=== PATIENT | male | born 1975 | race Caucasian/White ===

== ENCOUNTER 2017-09-21 11:54 | Emergency (ER) | payer BC ==
[2017-09-21] MEDS ORDERED: Bacitracin/Neomycin/Polymyxin B Oint 0.9 GM U/D Packet TOP ONE (12:05)
--- NOTE | 2017-09-21 12:05 | EDM.PDOC ---
ED HPI GENERAL MEDICAL PROBLEM - General Chief Complaint: General Stated Complaint: finger crush injury Time Seen by Provider: 09/21/17 12:00 Source of Information: Reports: Patient, EMS, Family (), Old Records ([facility] chart/EMR) History Limitations: Reports: No Limitations - History of Present Illness INITIAL COMMENTS - FREE TEXT/NARRATIVE: Patient was brought to the emergency room via private automobile for evaluation of a contusion of digit #4 of his left hand, which he struck with a hammer while at work at about 11:15 a.m. He has not injured this digit in the past. He does not know when his last tetanus booster was given. He denies any foreign body, paresthesias, neurological deficits, or other complaints or injury. Patient is right-handed. He is self-employed and does not wish to claim this as a Workmen's Compensation injury. The patient denies any chest pain/pressure, heart flutter, dizziness, orthostasis, orthopnea, diaphoresis, paresthesias, recent decreased exercise tolerance, or any other anginal-type symptoms. No recent history of abdominal pain, heartburn, nausea, diarrhea, melena, gross hematochezia, or any food intolerance, including fatty foods, etc.. The patient also denies any recent fever, cough, wheezing, dyspnea, etc.. Onset: Today, Sudden Onset Date: 09/21/17 Onset Time: 11:15 Duration: Constant Location: Reports: Upper Extremity, Left. 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 Denies: Hard of Hearing, Impaired Vision Cardiovascular History: Reports: None. Denies: Aneurysm, Arrhythmia, Blood Clots/VTE/DVT, Heart Murmur, Hypertension Musculoskeletal History: Reports: Fracture, Other (See Below). Denies: Arthritis, Back Pain, Chronic, Gout, Neck Pain, Chronic, Osteoarthritis, RA, SLE Other Musculoskeletal History: X-ray of the right wrist in 1995 and the right thumb in about 2009 with surgeries as below - Past Surgical History Male Surgical History: Reports: Circumcision, Other (See Below). Denies: Vasectomy Other Male Surgeries/Procedures: Circumcision as an Musculoskeletal Surgical History: Reports: ORIF, Other (See Below) Other Musculoskeletal Surgeries/Procedures:: ORIF and tendon repair of right thumb fracture in about 2009, right wrist pain placement for wrist fracture in 1995 Social & Family History - Tobacco Use Smoking Status *Q: Current Some Day Smoker Tobacco Use Within Last Twelve Months: Snuff/Dip Years of Tobacco use: 10 Packs/Tins Daily: 0.3 (Maximum use of 2 cans per week with initial use at about age 31) Smoking Cessation Information Provided To Patient: Yes Second Hand Smoke Exposure: No Second Hand Smoke Education Provided: No - Living Situation & Occupation Living situation: Reports: (2001, 4 children) 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 ED EXAM, GENERAL - Physical Exam Exam: See Below Exam Limited By: No Limitations General Appearance: Alert, WD/WN, No Apparent Distress Head: Atraumatic, Normocephalic Neck: Normal Inspection, Supple, Non-Tender, Full Range of Motion. No: Lymphadenopathy (L), Lymphadenopathy (R), Thyromegaly Respiratory/Chest: No Respiratory Distress, Lungs Clear, Normal Breath Sounds, No Accessory Muscle Use, Chest Non-Tender. No: Pleural Rub, Retractions Cardiovascular: Normal Peripheral Pulses, Regular Rate, Rhythm, No Edema, No Gallop, No JVD, No Murmur, No Rub. No: Gallop/S3, Gallop/S4, Friction Rub Peripheral Pulses: 2+: Radial (L), Radial (R), Dorsalis Pedis (L), Dorsalis Pedis (R) GI/Abdominal: Normal Bowel Sounds, Soft, Non-Tender, No Organomegaly, No Distention, No Abnormal Bruit, No Mass, Pelvis Stable (Male) Exam: Deferred Rectal (Males) Exam: Deferred Back Exam: Normal Inspection, Full Range of Motion. No: CVA Tenderness (L), CVA Tenderness (R), Muscle Spasm Extremities: Normal Range of Motion, No Pedal Edema, Normal Capillary Refill, Other (2 cm in length irregular laceration over the extensor surface of digit # 4 of the left hand including nailbed involvement; no foreign body; mild crepitation but no significant deformity with bone not visible; moderate subungual hematoma, additional 1 cm in length laceration over the proximal flexor aspect of the middle phalanx of the same digit). No: Holly's Sign Neurological: Alert, Oriented, CN II-XII Intact, Normal Cognition, Normal Gait, Normal Reflexes, No Motor/Sensory Deficits Psychiatric: Normal Affect, Normal Mood Skin Exam: Warm, Normal Color, No Rash, Wound/Incision (As above). No: Diaphoretic, Ecchymosis Lymphatic: No Adenopathy ED GENERAL MEDICAL PROCEDURES - Laceration/Wound Repair Left Distal Dorsal Finger Lac/wound length in cm: 2.0 Appearance: Superficial, Irregular, Clean Distal NVT: Neuro & Vascular Intact, No Tendon Injury Anesthetic Type: Digital Local Anesthesia - Lidocaine (Xylocaine): 1% Plain Local Anesthetic Volume: Other (10 cc with digital block with additional 3 mL of local at the nailbed) Skin Prep: Providone-Iodine (Betadine) Saline irrigation (cc's): 0 Exploration/Debridement/Repair: Wound Explored, In a Bloodless Field, Explored to Base, No Foreign Material Found, Multiple Flaps Aligned Closed with: Sutures Suture Size: 4-0 # of Sutures: 6 Suture Type: Nylon, Interrupted, Simple Drain Placement: No Sterile Dressing Applied: Nurse Tetanus Status Addressed: Yes Complications: No Left Middle Ventral Finger Lac/wound length in cm: 1.0 Appearance: Superficial, Linear Distal NVT: Neuro & Vascular Intact, No Tendon Injury Anesthetic Type: Local Local Anesthesia - Lidocaine (Xylocaine): 1% Plain Local Anesthetic Volume: 4cc Skin Prep: Providone-Iodine (Betadine) Saline irrigation (cc's): 0 Exploration/Debridement/Repair: Wound Explored, In a Bloodless Field, Explored to Base, No Foreign Material Found Closed with: Sutures Suture Size: 4-0 # of Sutures: 4 Suture Type: Nylon, Interrupted, Simple Drain Placement: No Sterile Dressing Applied: Nurse Tetanus Status Addressed: Yes Complications: No Course - Vital Signs Last Recorded V/S: Last Vital Signs Temp 37.1 C 09/21/17 11:55 Pulse 64 09/21/17 11:55 Resp 20 09/21/17 11:55 BP 138/73 09/21/17 11:55 Pulse Ox 97 09/21/17 11:55 Vital Signs - 24 hr 09/21/17 11:55 Temperature [ 37.1 C Temporal] Pulse, 64 Peripheral [ Right Brachial] Respiratory 20 Rate Blood Pressure 138/73 [Right Upper Arm] O2 Sat by Pulse 97 Oximetry - Orders/Labs/Meds Orders: Active Orders 24 hr Category Date Time Status Vaccines to be Administered [RC] PER UNIT ROUTINE Care 09/21/17 13:44 Active Fingers Fourth Digit Lt F3 [CR] Stat Exams 09/21/17 12:05 Taken Durable Medical Equipment for Discharge [DME for Oth 09/21/17 14:37 Ordered Discharge] [COMM] Routine Obtain Past Medical Record [OM.PC] Routine Oth 09/21/17 12:05 Active Labs: None Meds: Medications Discontinued Medications Generic Name Dose Route Start Last Admin Trade Name Freq PRN Reason Stop Dose Admin Diphtheria/Tetanus/Acell Pertussis 0.5 ml 09/21/17 13:44 09/21/17 13:49 Adacel IM 09/21/17 13:45 0.5 ml .ONCE ONE Administration Lidocaine HCl 5 ml 09/21/17 12:05 09/21/17 13:44 Xylocaine-Mpf 1% INJECT 09/21/17 12:06 5 ml ONETIME ONE Administration Lidocaine HCl 5 ml 09/21/17 12:06 09/21/17 13:44 Xylocaine-Mpf 1% INJECT 09/21/17 12:07 5 ml ONETIME ONE Administration Lidocaine HCl 5 ml 09/21/17 13:57 09/21/17 13:57 Xylocaine-Mpf 1% INJECT 09/21/17 13:58 5 ml ONETIME ONE Administration Lidocaine HCl Confirm 09/21/17 14:20 09/21/17 14:59 Xylocaine-Mpf 1% Administered 09/21/17 14:21 Not Given Dose 5 ml .ROUTE .STK-MED ONE Lidocaine HCl 5 ml 09/21/17 14:20 09/21/17 14:20 Xylocaine-Mpf 1% INJECT 09/21/17 14:21 5 ml ONETIME ONE Administration Neomycin/Polymyxin/Bacitracin 1 each 09/21/17 12:05 09/21/17 13:44 Triple Antibiotic Oint TOP 09/21/17 12:06 1 each ONETIME ONE Administration - Radiology Interpretation Free Text/Narrative:: X-rays of digit #4 of the left hand, complete, shows no evidence of foreign body , however mildly comminuted tuft fracture with 1 piece somewhat dislocated but no significant angulation Departure - Departure Time of Disposition: 15:00 Disposition: Home, Self-Care 01 Condition: Good Clinical Impression: Open fracture, Laceration, Tobacco abuse counseling Allergic rhinitis Qualifiers: Chronicity: chronic Allergic rhinitis trigger: unspecified Allergic rhinitis seasonality: seasonal Qualified Code(s): J30.2 - Other seasonal allergic rhinitis - Discharge Information Prescriptions: Clindamycin HCl 150 mg PO QID #40 capsule Instructions: Finger Fracture, [id number], Crush Injury, Fingers or Toes, [id number], Sutured Wound Care, [id number] Referrals: PCP,None [Primary Care Provider] - Forms: ED Department Discharge Additional Instructions: 1. Followup with your regular provider in 10-14 days as directed for reevaluation, suture removal, and repeat x-rays of your finger 2. BenGay or equivalent, heating pad, and/or ice packs as directed. 3. Antibacterial soap wash/soak with subsequent antibacterial dressing such as Neosporin, etc. as directed 2 times per day until the wound or laceration site completely heals. Keep the area clean and dry with activity restrictions as discussed. 4. Limited use of the left hand as discussed with finger splint to be worn at all times with exception of bathing and/or wound care 5. Stop all tobacco use CASI as directed/per provided information and consider contacting Quit LIne, etc.. 6. Tylenol 650 mg by mouth every 4 hours and/or OTC ibuprofen 2-3 tabs by mouth every 6 hours with food as directed./needed. - Problem List & Annotations (1) Laceration SNOMED Code(s): 604427171 Code(s): WOS3271 - Status: Acute Priority: High Onset Date: 09/21/17 Annotation/Comment:: Excellent results with laceration repair 2 as above. Note that fingernail was removed with repair of nailbed required. Tube gauze Neosporin dressing placed by by the nurse. Wound care and activity restrictions discussed. Patient does not wish to claim this is a Workmen's Compensation injury as above. DTaP given. (2) Open fracture SNOMED Code(s): 970839583 Code(s): T14.8XXA - OTHER INJURY OF UNSPECIFIED BODY REGION, INITIAL ENCOUNTER Status: Acute Priority: High Onset Date: 09/21/17 Annotation/ Comment:: Open Fracture as above. Patient to be started on clindamycin therapy. Close follow-up by regular provider as per discharge instructions. Patient provided with a 3-hole finger splint, which will be initiated after he removes his Tube gauze dressing tomorrow morning (3) Allergic rhinitis SNOMED Code(s): 56535017 Code(s): J30.9 - ALLERGIC RHINITIS, UNSPECIFIED Status: Chronic Priority : Medium Annotation/Comment:: Stable by history Qualifiers: Chronicity: chronic Allergic rhinitis trigger: unspecified Allergic rhinitis seasonality: seasonal Qualified Code(s): J30.2 - Other seasonal allergic rhinitis (4) Tobacco abuse counseling SNOMED Code(s): 540619501, 893875498 Code(s): Z71.6 - TOBACCO ABUSE COUNSELING Status: Chronic Priority: Medium Annotation/Comment:: Tobacco cessation strongly encouraged with information provided at discharge. Patient was also counseled on the use of Nicorette gum - Problem List Review Problem List Initiated/Reviewed/Updated: Yes - My Orders Last 24 Hours: My Active Orders 09/21/17 12:05 Fingers Fourth Digit Lt F3 [CR] Stat Obtain Past Medical Record [OM.PC] Routine 09/21/17 13:44 Vaccines to be Administered [RC] PER UNIT ROUTINE 09/21/17 14:37 Durable Medical Equipment for Discharge [DME for Discharge] [COMM] Routine - Assessment/Plan Last 24 Hours: My Active Orders 09/21/17 12:05 Fingers Fourth Digit Lt F3 [CR] Stat Obtain Past Medical Record [OM.PC] Routine 09/21/17 13:44 Vaccines to be Administered [RC] PER UNIT ROUTINE 09/21/17 14:37 Durable Medical Equipment for Discharge [DME for Discharge] [COMM] Routine Assessment:: As above Plan: As above. Extensive precautions were given to the patient and his , who are in agreement with the treatment plan. See Patient Instructions for further treatment and plan.
[2017-09-21] MEDS ORDERED: Diphtheria,Pertussis(Acell),Tetanus Vaccine 0.5 ML SDV IM ONE (13:44)
== END 2017-09-21 14:55 | disposition home or self-care (01) ==
LOC: SUPCPDRO 11:54 → LL.ED 11:54
DX: S62.605B Fracture of unspecified phalanx of left ring finger, initial encounter for open fracture (principal); F17.210 Nicotine dependence, cigarettes, uncomplicated; J30.2 Other seasonal allergic rhinitis; W22.8XXA Striking against or struck by other objects, initial encounter; Y93.89 Activity, other specified; Z71.6 Tobacco abuse counseling
CPT/HCPCS: 12002; 73140; 90471; 90715; 99284; L3999; 11422